=== PATIENT | female | born 1985 | race Caucasian/White ===

== ENCOUNTER 2018-01-26 12:31 | Emergency (ER) | payer BC ==
[2018-01-26] MEDS ORDERED: SODIUM CHLORIDE 1,000 ML IV ONE (12:56)
[2018-01-26] MEDS ORDERED: METOCLOPRAMIDE HCL INJECTION 10 MG/2 ML VIAL IVPUSH ONE (12:56)
--- NOTE | 2018-01-26 13:30 | PDOC ---
History of Present Illness - General Chief Complaint: Migraine Headache Stated Complaint: MIGRAINE HEADACHE PHOTOPHOBIA NAUSEA Time Seen by Provider: 01/26/18 12:37 History Source: Patient Exam Limitations: No Limitations - History of Present Illness Initial Comments: 01/26/18 13:25 32y F hx of migraines presents with 1 week of gradual onset of headache, desribed as a constant pounding in the front, sometimes in the right, sometimes in the left, associated with visual scotamata, photophobia, nausea/vomiting. She has been taking ibuprofen 1000mg a few times a day without significant improvement. Pt states the headache is similar to her migraines that she felt in the past, but note her migraines have been well controlled in the past few years after changing her diet. The pt denies any fever/chills, blurry or double vision, numbness/tingling/weakness, neck pain, back pain, abd pain, chest pain, sob dysuria, hematuria. No recent head injuuries or trauma. Past History - Past Medical History Allergies/Adverse Reactions: Allergies Allergy/AdvReac Type Severity Reaction Status Date / Time azithromycin Allergy Hives Verified 01/26/18 12:32 Home Medications: Ambulatory Orders Ibuprofen [Motrin -] 400 mg PO PRN 01/26/18 Metoclopramide HCl [Reglan] 10 mg PO TID PRN #10 tablet 01/26/18 Anemia: No Asthma: No Cancer: No Cardiac Disorders: No Diabetes: No Disorders: Yes (endometriosis) HTN: No Hypercholesterolemia: No Kidney Stones: No - Surgical History Abdominal Surgery: Yes (laparoscopy) Appendectomy: No - Suicide/Smoking/Psychosocial Hx Smoking Status: No Smoking History: Never smoked Have you smoked in the past 12 months: No Number of Cigarettes Smoked Daily: 0 Hx Alcohol Use: No Drug/Substance Use Hx: No Substance Use Type: None Review of Systems - Review of Systems Able to Perform ROS?: Yes Comments:: 01/26/18 13:28 Constitutional - no reported Fever, Chills, HEENT: +flashing lights no reported vision changes, sore throat Respiratory: no reported cough, sob, hemoptysis Cardiac: no reported chest pain, palpitations, light headedness, leg swelling Abd/GI: +nausea, vomiting, no reported abd pain, blood per rectum, melena, diarrhea : no reported dysuria, frequency, discharge Musculskelatal - no reported back pain, joint swelling skin - no reported bruising, erythema, rash neurological: +headache,no reported numbness, focal weakness, tingling, ataxia , hematologic: no reported easy bruising, easy bleeding *Physical Exam - Physical Exam Comments: 01/26/18 13:29 GENERAL: The patient is awake, alert, and fully oriented, Nontoxic - in no acute distress. HEAD: Normocephalic, atraumatic. EYES: extraocular movements intact, sclera anicteric, conjunctiva clear. ENT: Normal voice, Moist mucous membranes. NECK: Normal range of motion, supple LUNGS: Breath sounds equal, clear to auscultation bilaterally. No wheezes, no rhonchi, no rales. HEART: Regular rate and rhythm, normal S1 and S2 without murmur, rub or gallop. ABDOMEN: Soft, nontender, normoactive bowel sounds. No guarding, no rebound. . No CVA tenderness EXTREMITIES: Normal range of motion, no edema. No clubbing or cyanosis. No cords, erythema, or tenderness. NEUROLOGICAL: No facial assymetry, Normal speech, normal sensation b/l in upper and lower extremities, strength 5/5 and symmetric throughout PSYCH: Normal mood, normal affect. SKIN: Warm, Dry, normal turgor, ED Treatment Course - LABORATORY CBC & Chemistry Diagram: 01/26/18 13:33 01/26/18 14:17 Medical Decision Making - Medical Decision Making 01/26/18 13:30 suspect migraine headache vs tension headache fluids, reglan will ck labs due to her significant doses of ibuprofen the past few days. pt denies using tylenol as it doenst usually work for her. 01/26/18 14:39 pt feeling significantly improved currently with pain level of 0/10 and complete resolution of her headache pts labs were hemolyzed so will recheck but anticpate dc with pmd fu and neuro fu if recurrent headaches I discussed the physical exam findings, ancillary test results and final diagnoses with the patient. I answered all of the patient's questions. The patient was satisfied with the care received and felt comfortable with the discharge plan and treatment plan. The patient will call their primary care physician within 24 hours to arrange follow-up and will return to the Emergency Department with any new, persistent or worsening symptoms. *DC/Admit/Observation/Transfer Diagnosis at time of Disposition: Migraine headache with aura Qualifiers: Status migrainosus presence: without status migrainosus Intractability: not intractable Qualified Code(s): G43.109 - Migraine with aura, not intractable, without status migrainosus - Discharge Dispostion Disposition: HOME Condition at time of disposition: Improved Decision to Admit order: No - Prescriptions Prescriptions: Metoclopramide HCl [Reglan] 10 mg PO TID PRN #10 tablet PRN Reason: Headache - Referrals Referrals: Darvin Celestin DO [Staff Physician] - - Patient Instructions Printed Discharge Instructions: DI for Migraine Additional Instructions: Return to the emergency department immediately with ANY new, persistent or worsening symptoms including worsening headache, vision changes, numbness/ tingling/weakness, persistent nausea and vomiting or any other concerns. Make sure you are getting adaqute sleep and hydration. You MUST call and follow up with your doctor tomorrow for further evaluation of your symptoms. Your emergency department visit is not complete without a followup with your doctor for reevaluation. Results were discussed with you. Please make sure your doctor reviews the results of your emergency evaluation. Print Language: ROMANIAN - Post Discharge Activity
[2018-01-26 13:41] LABS: BASO % 0.4 % (0-2.0); EOS % 0.4 % (0-4.5); HEMATOCRIT 39.1 % (32.4-45.2); HEMOGLOBIN 13.1 GM/dl (10.7-15.3); LYMPH % 26.7 % (8-40); MCHC 33.5 g/dl (32.0-36.0); MEAN CELL VOLUME 80.7 fl (80-96); MEAN PLT VOLUME 7.8 fl (7.5-11.1); MONO % 7.3 % (3.8-10.2); NEUT % 65.2 % (42.8-82.8); PLATELET COUNT 408 K/MM3 (134-434); RBC 4.85 M/mm3 (3.60-5.2); WHITE BLOOD COUNT 8.2 K/mm3 (4.0-10.8)
[2018-01-26 13:47] VITALS: BP 108/74; PULSE 84; TEMP 98.3; BMI 25.7
[2018-01-26 16:04] LABS: ALBUMIN 3.7 g/dl (3.5-5.0); ALK PHOS 45 U/L (32-92); ANION GAP 7 (8-16); BLOOD UREA NITROGEN 15 mg/dl (7-18); CALCIUM 8.7 mg/dl (8.4-10.2); CHLORIDE 105 mmol/L (98-107); CO2 22 mmol/L (22-28); GLUCOSE,RANDOM 71 mg/dl (74-106); SGOT/AST 15 U/L (10-42); SGPT/ALT 14 U/L (10-40); SODIUM 134 mmol/L (136-145); TOT PROT 6.6 g/dl (6.4-8.3)
[2018-01-26 16:27] LABS: BILIRUBIN,TOTAL < 0.5 mg/dl (0.2-1.0); CREATININE < 0.8 mg/dl (0.6-1.3)
== END 2018-01-26 16:48 | disposition home or self-care (01) ==
LOC: FER 12:31
PROC: 3E033GC Introduction of Other Therapeutic Substance into Peripheral Vein, Percutaneous Approach (ICD-10-PCS; principal; 2018-01-26)
PROC: 3E0337Z Introduction of Electrolytic and Water Balance Substance into Peripheral Vein, Percutaneous Approach (ICD-10-PCS; 2018-01-26)
DX: G43.109 Migraine with aura, not intractable, without status migrainosus (principal)
CPT/HCPCS: 36415; 80053; 84703; 85025; 99282-25; J7030

== ENCOUNTER 2018-02-02 16:11 | Emergency (ER) | payer BC ==
--- NOTE | 2018-02-02 16:13 | PDOC ---
History of Present Illness - General History Source: Patient Exam Limitations: No Limitations - History of Present Illness Initial Comments: 02/02/18 16:27 The patient is a 32 year old female, with a significant past medical history of migraines and endometriosis, who presents to the emergency department with, 2 weeks of a worsening migraine. She describes her migraine as a drilling sensation with associated photophobia and pressure behind her eyes. She reports going to the ED 1 week ago and was given a referral to a neurologist to whom she saw 4 days ago. Her neurologist put her on 6 days of Prednisone and Maxalt. She denies recent fevers, chills, or dizziness. She denies recent nausea, vomit , diarrhea or constipation. She denies recent dysuria, frequency, urgency or hematuria. She denies recent chest pain or shortness of breath. Allergies: Z-Pack. Past surgical history: None reported. Social history: Nonsmoker. Denies EtOH use and recreational drug use. <Rancho Hutton - Last Filed: 02/02/18 16:27> <Mickey Stafford - Last Filed: 02/02/18 18:43> - General Chief Complaint: Migraine Headache Stated Complaint: migraine Time Seen by Provider: 02/02/18 16:13 Past History <Rancho Hutton - Last Filed: 02/02/18 16:27> - Past Medical History Anemia: No Asthma: No Cancer: No Cardiac Disorders: No COPD: No Diabetes: No Disorders: Yes (endometriosis) HTN: No Hypercholesterolemia: No Kidney Stones: No - Surgical History Abdominal Surgery: Yes (laparoscopy) Appendectomy: No - Suicide/Smoking/Psychosocial Hx Smoking Status: No Smoking History: Never smoked Have you smoked in the past 12 months: No Number of Cigarettes Smoked Daily: 0 Hx Alcohol Use: No Drug/Substance Use Hx: No Substance Use Type: None <Mickey Stafford - Last Filed: 02/02/18 18:43> - Past Medical History Allergies/Adverse Reactions: Allergies Allergy/AdvReac Type Severity Reaction Status Date / Time azithromycin Allergy Hives Verified 02/02/18 16:11 Home Medications: Ambulatory Orders Amoxicillin - [Amoxicillin 875mg Tablet -] 875 mg PO BID #20 tablet 02/02/18 Prednisone 5 mg PO DAILY 02/02/18 Rizatriptan Benzoate [Maxalt Hydraulic Press Tender] 10 mg PO DAILY 02/02/18 Review of Systems - Review of Systems Able to Perform ROS?: Yes Constitutional: No: Symptoms Reported, See HPI, Chills, Diaphoresis, Fever, Loss of Appetite, Malaise, Night Sweats, Weakness, Weight Stable, Unintentional Wgt. Loss, Unexplained wgt Loss, Other HEENTM: No: Symptoms Reported, See HPI, Eye Pain, Blurred Vision, Tearing, Recent change in vision, Double Vision, Cataracts, Ear Pain, Ocular Prothesis, Ear Discharge, Nose Pain, Nose Congestion, Tinnitus, Nose Bleeding, Hearing Loss , Throat Pain, Throat Swelling, Mouth Pain, Dental Problems, Difficulty Swallowing, Mouth Swelling, Other Respiratory: No: Symptoms reported, See HPI, Cough, Orthopnea, Shortness of Breath, SOB with Exertion, SOB at Rest, Stridor, Wheezing, Productive cough, Hemoptysis, Other Cardiac (ROS): No: Symptoms Reported, See HPI, Chest Pain, Edema, Irregular Heart Rate, Lightheadedness, Palpitations, Syncope, Chest Tightness, Other ABD/GI: No: Symptoms Reported, See HPI, Abdominal Distended, Abd. Pain w/ defecation, Blood Streaked Bowels, Constipated, Diarrhea, Difficulty Swallowing , Nausea, Poor Appetite, Poor Fluid Intake, Rectal Bleeding, Vomiting, Indigestion, Abdominal cramping, Tarry Stools, Other : No: Symptoms Reported, See HPI, Burning, Dysuria, Discharge, Frequency, Flank Pain, Hematuria, Incontinence, Pain, Urgency, Testicular Mass, Testicular Swelling, Lesions, Testicular Pain, Other Musculoskeletal: No: Symptoms Reported, See HPI, Back Pain, Gout, Joint Pain, Joint Swelling, Muscle Pain, Muscle Weakness, Neck Pain, Joint Stiffness, Other Integumentary: No: Symptoms Reported, See HPI, Bruising, Change in Color, Change in Hair/Nails, Dryness, Erythema, Flushing, Lesions, Lumps, Pallor, Pruritus, Rash, Sweating, Other Neurological: Yes: Headache, Other (Photophobia.) Psychiatric: No: Anxiety, Depression, Frequent Crying, Stressors, Sleep Pattern Change, Emotional Problems, Mood Swings, Change in Appetite, Other Endocrine: No: Symptoms Reported, See HPI, Excessive Sweating, Flushing, Intolerance to Cold, Intolerance to Heat, Increased Hunger, Increased Thirst, Increased Urine, Unexplained Weight Gain, Unexplained Weight Loss, Change in Weight, Other Hematologic/Lymphatic: No: Symptoms Reported, See HPI, Anemia, Blood Clots, Easy Bleeding, Easy Bruising, Bleeding Diathesis, Lymph Node Abnormalities, Swollen Glands, Other All Other Systems: Reviewed and Negative <Rancho Hutton - Last Filed: 02/02/18 16:27> *Physical Exam - Physical Exam Comments: 02/02/18 16:29 General Appearance: Yes: Appropriately Dressed, Nourished. No: Apparent Distress, Disheveled, Mild Distress, Moderate Distress, Severe Distress, Alcohol on Breath, Intoxicated, Cachetic, Obese, Thin, Other (+)HEENT: positive: Frontal sinus pressure. Pressure behind the eye. EOMI, TAMARA , Normal ENT Inspection, Normal Voice, TMs Normal, Pharynx Normal. negative: Symmetrical, Pale Conjunctivae, Scleral Icterus (R), Scleral Icterus (L), Muffled/Hoarse voice, Pharyngeal Erythema, Tonsillar Exudate, Tonsillar Erythema , Nasal Congestion, Rhinorrhea, Orbits, Hearing Decreased, Hearing Grossly Normal, TM Bulging, TM Dull, TM Erythema, Lesions, Interiano, Excessive drooling, Thrush, Other Neck: positive: Trachea midline, Normal Thyroid, Supple. negative: Tender, Rigid, Carotid bruit, Decreased range of motion, Stridor, Lymphadenopathy (R), Lymphadenopathy (L), Rigidity, Tender lateral, Tender midline, Thyromegaly, Other Respiratory/Chest: positive: Lungs Clear, Normal Breath Sounds. negative: Accessory Muscle Use, Chest Tender, Respiratory Distress, Labored Respiration, Rapid RR, Decreased Breath Sounds, Paradoxal Breathing, Crackles, Rales, Rhonchi , Stridor, Wheezing, Dullness, Hyperresonant, Plerual Rub, Other Cardiovascular: positive: Regular Rate, Regular Rhythm, S1, S2. negative: Edema , JVD, Murmur, Bradycardia, Tachycardia, Diastolic Murmur, Systolic Murmur, Gallop/S3, Gallop/S4, Irregularly Irregular, Irregular, Other Vascular Pulses: Femoral (R): 4+, Femoral (L): 4+, Carotid (R): 4+, Carotid (L) : 4+, Dorsalis-Pedis (R): 4+, Doralis-Pedis (L): 4+ Gastrointestinal/Abdominal: positive: Normal Bowel Sounds, Flat, Soft. negative : Tender, Organomegaly, Pulsatile Mass, Increased Bowel Sounds, Decreased BS, Protuberent, Distended, Guarding, Rebound, Tenderness, Hernia, Mass, Hepatomegaly, Spleenomegaly, Other Lymphatic: negative: Adenopathy, Tenderness, Other Musculoskeletal: positive: Normal Inspection. negative: CVA Tenderness, CVA Tenderness (R), CVA Tenderness (L), Decreased Range of Motion, Muscle Spasm, Vertebral Tenderness, Other Extremity: positive: Normal Capillary Refill, Normal Inspection, Normal Range of Motion. negative: Tender, Pelvis Stable, Coldness, Cyanosis, Delayed Capillary Refill, Pedal Edema, Swelling, Calf Tenderness, Erythema, Inflammation , Other Integumentary: positive: Normal Color, Dry, Warm. negative: Cyanotic, Erythema , Jaundice, Mottled, Pale, Cold, Clammy, Diaphoresis, Moist, Hives, Petechiae, Rash, Swelling, Ecchymosis, Bruising, Other Neurologic: positive: industrial property appraiser II-XII NML intact, Fully Oriented, Alert, Normal Mood/ Affect, Normal Response, Motor Strength 5/5. negative: Abnormal Cranial NS, Respond to painful stimul, Responsive, EOM Palsy, Facial Droop, Numbness, Sensory Deficit, Finger to Nose, Confused, Disoriented, Depressed Affect, Babinski, Other <Rancho Hutton - Last Filed: 02/02/18 16:27> Progress Note - Progress Note Progress Note: Pt having a migraine headache for last 2 weeks. Sinus pressure, frontal on exam , Neuro exam normal with no meningeal signs Given IVF, Toradol IV, Reglan IV and Decadron IV. Pt is feeling better. This in not the patient's worse headache ever. Obtain CT head. CT head: Normal, no bleed, left maxillary sinus disease Pt states headache has resolved completely Continue current treatment and will start Amoxicillin <Mickey Stafford - Last Filed: 02/02/18 18:43> *DC/Admit/Observation/Transfer - Attestations Scribe Attestion: 02/02/18 16:30 Documentation prepared by Rancho Hutton, acting as medical technician for Mickey Stafford MD. <Rancho Hutton - Last Filed: 02/02/18 16:27> - Discharge Dispostion Decision to Admit order: No <Mickey Stafford - Last Filed: 02/02/18 18:43> Diagnosis at time of Disposition: Migraine headache Qualifiers: Migraine type: unspecified Status migrainosus presence: with status migrainosus Intractability: not intractable Qualified Code(s): G43.901 - Migraine, unspecified, not intractable, with status migrainosus Sinusitis Qualifiers: Sinusitis location: maxillary Chronicity: acute Recurrence: not specified as recurrent Qualified Code(s): J01.00 - Acute maxillary sinusitis, unspecified - Discharge Dispostion Condition at time of disposition: Good - Patient Instructions Printed Discharge Instructions: DI for Migraine Additional Instructions: Continue current treatment Amoxicillin 875 mg 2x/day for 10 days Follow up with Neurologist If worsen return to ER
[2018-02-02] MEDS ORDERED: SODIUM CHLORIDE 1,000 ML IV STA (16:21)
[2018-02-02] MEDS ORDERED: KETOROLAC TROMETHAMINE 30 MG/1 ML VIAL ONE (16:21)
[2018-02-02] MEDS ORDERED: KETOROLAC TROMETHAMINE 30 MG/1 ML VIAL IVPUSH ONE (16:21)
[2018-02-02] MEDS ORDERED: METOCLOPRAMIDE HCL INJECTION 10 MG/2 ML VIAL IVPUSH ONE (16:21)
[2018-02-02] MEDS ORDERED: DEXAMETHASONE SOD PHOSPHATE 4 MG/1 ML VIAL IVPUSH ONE (16:21)
[2018-02-02] MEDS ORDERED: DEXAMETHASONE SOD PHOSPHATE 4 MG/1 ML VIAL ONE (16:22)
[2018-02-02 16:48] VITALS: BP 128/85; PULSE 80; TEMP 99; BMI 27.4
[2018-02-02] MEDS ORDERED: AMOXICILLIN 250 MG CAPSULE ONE (18:47)
[2018-02-02] MEDS ORDERED: AMOXICILLIN 500 MG CAPSULE (FP) PO ONE (18:47)
[2018-02-02] MEDS ORDERED: AMOXICILLIN 250 MG CAPSULE PO ONE (18:49)
== END 2018-02-02 18:54 | disposition home or self-care (01) ==
LOC: FER 16:11
PROC: 3E033GC Introduction of Other Therapeutic Substance into Peripheral Vein, Percutaneous Approach (ICD-10-PCS; principal; 2018-02-02)
PROC: 3E0337Z Introduction of Electrolytic and Water Balance Substance into Peripheral Vein, Percutaneous Approach (ICD-10-PCS; 2018-02-02)
DX: G43.901 Migraine, unspecified, not intractable, with status migrainosus (principal); J01.00 Acute maxillary sinusitis, unspecified
CPT/HCPCS: 70450-TC; 84703; 99282-25; J7030

== ENCOUNTER 2019-07-23 14:04 | Emergency (ER) | payer BC ==
--- NOTE | 2019-07-23 14:38 | PDOC ---
History of Present Illness <Zachariah Romero - Last Filed: 07/23/19 15:55> - General History Source: Patient Exam Limitations: No Limitations - History of Present Illness Initial Comments: 07/23/19 14:37 Harriet Arias is a 33F with bronchitis presenting with worsening SOB. Patient was diagnosed with bronchitis 3 weeks ago at urgent care with coughing and SOB. Last week went to urgent care again because cough did not resolve, was put on cefdenir and Ventolin. Has been taking both meds, now is presenting with worsening SOB. Denies fever/chills, nausea/vomiting, urinary sx, productive cough, BROOKS, dizziness, chest pain. 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 <Kenny Butler - Last Filed: 07/25/19 19:05> - General Chief Complaint: Respiratory Stated Complaint: BRONCHITIS Past History <Zachariah Romero - Last Filed: 07/23/19 15:55> - Past Medical History Anemia: No Asthma: No Cancer: No Cardiac Disorders: No COPD: No Diabetes: No Disorders: Yes (endometriosis) HTN: No Hypercholesterolemia: No Kidney Stones: No - Surgical History Abdominal Surgery: Yes (laparoscopy) Appendectomy: No - Psycho Social/Smoking Cessation Hx Smoking Status: No Smoking History: Never smoked Have you smoked in the past 12 months: No Number of Cigarettes Smoked Daily: 0 Hx Alcohol Use: No Drug/Substance Use Hx: No Substance Use Type: None <Kenny Butler - Last Filed: 07/25/19 19:05> - Past Medical History Allergies/Adverse Reactions: Allergies Allergy/AdvReac Type Severity Reaction Status Date / Time azithromycin Allergy Hives Verified 02/02/18 16:11 Home Medications: Ambulatory Orders Rizatriptan Benzoate [Maxalt [employer] Pastor] 10 mg PO DAILY 02/02/18 Albuterol Sulfate Inhaler - [Ventolin HFA Inhaler -] 2 inh PO Q6H PRN 07/23/19 Cefdinir [Omnicef -] 300 mg PO BID 07/23/19 Dextromethorphan HBr [Tussin Cough] 15 mg PO BID PRN 07/23/19 Promethazine/Dextromethorphan [Promethazine-Dm Syrup] 15 ml PO HS PRN 07/23/19 Review of Systems - Review of Systems Able to Perform ROS?: Yes Constitutional: No: Symptoms Reported HEENTM: No: Symptoms Reported Respiratory: Yes: Cough, Shortness of Breath. No: Wheezing Cardiac (ROS): No: Symptoms Reported ABD/GI: No: Symptoms Reported : No: Symptoms Reported Musculoskeletal: No: Symptoms Reported Integumentary: No: Symptoms Reported Neurological: No: Symptoms reported Endocrine: No: Symptoms Reported Hematologic/Lymphatic: No: Symptoms Reported All Other Systems: Reviewed and Negative <Kenny Butler - Last Filed: 07/25/19 19:05> *Physical Exam - Vital Signs Last Vital Signs Temp Pulse Resp BP Pulse Ox 98.1 F 92 H 18 123/80 100 07/23/19 14:06 07/23/19 14:06 07/23/19 14:06 07/23/19 14:06 07/23/19 14:06 <Zachariah Romero - Last Filed: 07/23/19 15:55> - Physical Exam General Appearance: Yes: Nourished, Appropriately Dressed, Mild Distress HEENT: positive: EOMI, TAMARA, Normal Voice, Symmetrical, Pharynx Normal. negative: Scleral Icterus (R), Scleral Icterus (L), Pharyngeal Erythema, Tonsillar Exudate, Tonsillar Erythema Neck: positive: Trachea midline, Supple. negative: Tender, Lymphadenopathy (R) , Lymphadenopathy (L) Respiratory/Chest: positive: Lungs Clear, Normal Breath Sounds, Respiratory Distress. negative: Chest Tender, Accessory Muscle Use, Crackles, Rales, Rhonchi, Stridor, Wheezing Cardiovascular: positive: Regular Rhythm, Regular Rate Gastrointestinal/Abdominal: positive: Normal Bowel Sounds, Flat, Soft. negative : Tender Musculoskeletal: positive: Normal Inspection. negative: CVA Tenderness Extremity: positive: Normal Capillary Refill, Normal Inspection, Normal Range of Motion, Pelvis Stable. negative: Tender Integumentary: positive: Normal Color, Dry, Warm Neurologic: positive: Fully Oriented, Alert, Normal Mood/Affect, Normal Response <Kenny Butler - Last Filed: 07/25/19 19:05> ED Treatment Course - RADIOLOGY Radiology Studies Ordered: Category Date Time Status CHEST PA & LAT [RAD] Stat Radiology 07/23/19 15:31 Taken - Medications Given in the ED: ED Medications Discontinued Medications Generic Name Dose Route Start Last Admin Trade Name Adarsh PRN Reason Stop Dose Admin Albuterol/Ipratropium 1 amp 07/23/19 14:42 07/23/19 14:48 Duoneb - NEB 07/23/19 14:43 1 amp ONCE ONE Administration <HeatherZachariah skinner - Last Filed: 07/23/19 15:55> Medical Decision Making - Medical Decision Making 07/23/19 14:37 Harriet Arias is a 33F with bronchitis presenting with worsening SOB. Presentation concerning for PNA vs. worsening bronchitis vs. asthma exacerbation. Getting CXR and giving 1 amp Duonebs. Patient improved after Duoneb amp, was not wheezing prior but air flow clinically improved. CXR unremarkable for PNA or other pathology. Symptoms consistent with asthma on top of bronchitis, giving 10mg Decadron. Patient is stable and breathing well, in no acute distress, feels better. Stable to be discharge home. <Kenny Butler - Last Filed: 07/25/19 19:05> Discharge - Discharge Information Problems reviewed: No <Zachariah Romero - Last Filed: 07/23/19 15:55> - Discharge Information Problems reviewed: Yes - Admission No <Kenny Butler - Last Filed: 07/25/19 19:05> - Discharge Information Clinical Impression/Diagnosis: Bronchitis Dyspnea Qualifiers: Dyspnea type: shortness of breath Qualified Code(s): R06.02 - Shortness of breath Condition: Good Disposition: HOME - Follow up/Referral Referrals: Mariaelena Alford MD [Primary Care Provider] - - Patient Discharge Instructions Patient Printed Discharge Instructions: DI for Acute Bronchitis Additional Instructions: Today you were evaluated for shortness of breath with your bronchitis. Your x- ray does not show evidence of pneumonia or other problems. We gave you a medication called Duonebs for your shortness of breath, and you felt better. We also gave you a medication called Decadron to help with your lungs and cough. Please follow-up with your primary doctor in the next 3 days for further care. If you experience worsening shortness of breath, have a productive cough, nausea , vomiting, or any other new or concerning symptoms, please return to the emergency room. - Post Discharge Activity
[2019-07-23] MEDS ORDERED: ALBUTEROL SO4 2.5/IPRATROPIUM 0.5 INH SOL 3 ML VIAL.NEB. NEB ONE ×2 (14:42→14:44)
[2019-07-23 14:58] VITALS: BP 123/80; PULSE 92; TEMP 98.1; BMI 25.0
--- NOTE | 2019-07-23 15:25 | PDOC ---
Attending Attestation - Resident Resident Name: Kenny Butler - ED Attending Attestation I have performed the following: I have examined & evaluated the patient, The case was reviewed & discussed with the resident, I agree w/resident's findings & plan, Exceptions are as noted - HPI HPI: 07/23/19 14:44 33y F hx of endometriosis presents with sob. pt has been having bronchitis, was started on ceftinir from urgent care and a ventolin inhaler, has been using the medications as prescribed but presents due to worsening sob. 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 HEAD: Normocephalic, atraumatic. LUNGS: Breath sounds equal, clear to auscultation bilaterally. No wheezes, no rhonchi, no rales. HEART: Regular rate and rhythm, normal S1 and S2 without murmur, rub or gallop. ABDOMEN: Soft, nontender, No guarding, no rebound. No CVA tenderness EXTREMITIES: Normal range of motion, no edema. NEUROLOGICAL: No facial assymetry, Normal speech, PSYCH: Normal mood, normal affect. SKIN: Warm, Dry, normal turgor, - Medical Decision Making 07/23/19 15:55 Suspect possible bronchospasm versus pneumonia Lungs are clear, patient no distress, vital signs are normal The patient was given DuoNeb without significant relief of her coughing Chest x-ray is unremarkable without signs of pneumonia We will give the patient dose of Decadron Will discharge patient with supportive care And PMD follow-up
[2019-07-23] MEDS ORDERED: DEXAMETHASONE 4 MG TABLET (FP) PO ONE (15:53)
[2019-07-23] MEDS ORDERED: DEXAMETHASONE 4 MG TABLET (FP) ONE (16:21)
== END 2019-07-23 16:36 | disposition home or self-care (01) ==
LOC: FER 14:04
PROC: 3E0F7GC Introduction of Other Therapeutic Substance into Respiratory Tract, Via Natural or Artificial Opening (ICD-10-PCS; principal; 2019-07-23)
DX: R06.00 Dyspnea, unspecified (principal); R06.01 Orthopnea; N80.9 Endometriosis, unspecified; Z88.8 Allergy status to other drugs, medicaments and biological substances
CPT/HCPCS: 71046-TC-FY; 99281-25

== ENCOUNTER 2020-08-30 00:27 | Emergency (ER) | payer BC ==
[2020-08-30 01:35] LABS: BASO % 0.4 % (0-2.0); EOS % 0.8 % (0-4.5); HEMATOCRIT 40.2 % (32.4-45.2); LYMPH % 42.9 % (8-40); MCH 26.4 pg (25.7-33.7); MCHC 32.4 g/dl (32.0-36.0); MEAN CELL VOLUME 81.5 fl (80-96); MEAN PLT VOLUME 8.2 fl (7.5-11.1); MONO % 8.7 % (3.8-10.2); NEUT % 47.2 % (42.8-82.8); PLATELET COUNT 423 K/MM3 (134-434); RBC 4.93 M/mm3 (3.60-5.2); WHITE BLOOD COUNT 7.3 K/mm3 (4.0-10.0)
[2020-08-30 01:37] LABS: PH,URINE 5.5 (5.0-8.0); URINE APPEARANCE CLEAR; URINE BILIRUBIN NEGATIVE (NEGATIVE); URINE COLOR YELLOW; URINE GLUCOSE (UA) NEGATIVE (NEGATIVE); URINE KETONE NEGATIVE (NEGATIVE); URINE LEUK ESTERASE NEGATIVE (NEGATIVE); URINE NITRITE NEGATIVE (NEGATIVE); URINE PROTEIN NEGATIVE (NEGATIVE); URINE UROBILINOGEN 0.2 mg/dL (0.2-1.0)
[2020-08-30 01:54] LABS: POTASSIUM 3.9 mmol/L (3.5-5.1)
[2020-08-30 01:57] LABS: BLOOD UREA NITROGEN 11.2 mg/dL (7-18); CALCIUM 9.1 mg/dL (8.5-10.1)
[2020-08-30 02:00] LABS: CREATININE 0.9 mg/dL (0.55-1.3)
[2020-08-30 02:02] LABS: BILIRUBIN,TOTAL 0.2 mg/dL (0.2-1); TOT PROT 7.5 g/dl (6.4-8.2)
== END 2020-08-30 02:36 | disposition home or self-care (01) ==
LOC: FER 00:27
DX: R10.32 Left lower quadrant pain (principal)
CPT/HCPCS: 36415; 74176-TC; 80053; 81003; 81025; 85025; 87086; 99281-25

== ENCOUNTER 2022-10-17 18:30 | Emergency (ER) | payer BC ==
[2022-10-17 19:03] VITALS: BP 129/84; PULSE 87; RESP 18; TEMP 98.3; BMI 25.3
[2022-10-17 19:21] LABS: MCHC 33.3 g/dl (32.0-36.0); MEAN CELL VOLUME 80.9 fl (80-96); MEAN PLT VOLUME 7.3 fl (7.5-11.1); PLATELET COUNT 407.3 10^3/uL (134-434); RBC 4.08 10^6/uL (3.60-5.2); RDW 14.6 % (11.6-15.6); WHITE BLOOD COUNT 9.2 10^3/uL (4.0-10.8)
[2022-10-17 19:36] LABS: ALBUMIN 3.8 g/dl (3.4-5.0); BILIRUBIN,TOTAL 0.4 mg/dl (0.2-1); CALCIUM 8.8 mg/dl (8.5-10); CREATININE 0.5 mg/dl (0.55-1.3); TOT PROT 6.7 g/dl (6.4-8.2)
[2022-10-17 19:36] LABS: PLATELET ESTIMATE ADEQUATE
[2022-10-17 20:44] LABS: EPITHELIAL CELLS RARE /hpf
== END 2022-10-17 20:00 | disposition home or self-care (01) ==
LOC: FER 18:30
DX: R22.43 Localized swelling, mass and lump, lower limb, bilateral (principal)
CPT/HCPCS: 36415; 80053; 81003; 81015; 85027; 93971-RT; 99284-25

== ENCOUNTER 2024-05-08 22:53 | Emergency (ER) | payer BC ==
[2024-05-08 23:01] VITALS: BP 133/81; PULSE 92; RESP 18; TEMP 97.3; BMI 25.3
[2024-05-09] MEDS ORDERED: ACETAMINOPHEN 500 MG TABLET (FP) ONE (00:26)
== END 2024-05-09 01:12 | disposition home or self-care (01) ==
LOC: FER 22:53
DX: S83.92XA Sprain of unspecified site of left knee, initial encounter (principal); S93.402A Sprain of unspecified ligament of left ankle, initial encounter; W10.8XXA Fall (on) (from) other stairs and steps, initial encounter
CPT/HCPCS: 73560-TC-LT-FY; 73610-TC-LT-FY; 99284-25